=== PATIENT | male | born 1990 | race Two or more races ===

== ENCOUNTER 2021-12-23 08:02 | Day surgery (SDC) | payer SELFPAY ==
[~2021-12-23 08:02] MED LIST: Lactated Ringers 1,000 ML IV SCH
[2021-12-23] MEDS ORDERED: fentaNYL 100 MCG/2 ML SDV ONE (08:45)
[2021-12-23] MEDS ORDERED: Propofol 200 MG/20 ML SDV ONE (08:45)
[2021-12-23] MEDS ORDERED: Lidocaine 2% 5 ML SDV ONE (08:45)
== END 2021-12-23 11:13 | disposition home or self-care (01) ==
LOC: MW.SDS 08:02
PROVIDERS: ATTEND Surgery
DX: D12.8 Benign neoplasm of rectum (principal); D12.6 Benign neoplasm of colon, unspecified; K59.00 Constipation, unspecified
CPT/HCPCS: 45380; 45385; J2704; J3010; J7120; 00811